=== PATIENT | male | born 1985 | race Caucasian/White ===

== ENCOUNTER → 2018-11-04 | Outpatient (CLI) | payer OTHER, MEDICARE ==
[~2018-11-04] MED LIST: DIVA500T2 PO; LEVO100C2 PO
[2018-11-04 12:45] LABS: BASOPHILS # (AUTO) 0.05 x10^3/uL (0-0.1); BASOPHILS % (AUTO) 1 % (0-1); EOSINOPHILS # (AUTO) 0.18 x10^3/uL (0-0.4); EOSINOPHILS % (AUTO) 2 % (1-7); LYMPHOCYTES # (AUTO) 2.61 x10^3/uL (1-3.4); LYMPHOCYTES % (AUTO) 27 % (22-44); MD NO; MEAN CORPUSCULAR HEMOGLOBIN 30.8 pg (27.5-34.5); MEAN CORPUSCULAR HGB CONC 33.4 g/dL (33.2-36.2); MEAN CORPUSCULAR VOLUME 92.1 fL (81-97); MONOCYTES # (AUTO) 0.83 x10^3/uL (0.2-0.8); MONOCYTES % (AUTO) 9 % (2-9); NEUTROPHILS # (AUTO) 5.96 x10^3/uL (1.8-6.8); NEUTROPHILS % (AUTO) 62 % (42-75); PLATELET COUNT 214 x10^3/uL (130-400); RED BLOOD COUNT 5.07 x10^6/uL (4.38-5.82); RED CELL DISTRIBUTION WIDTH 13.3 % (9.4-14.8)
[2018-11-04 13:00] LABS: CHLORIDE 106 mmol/L (98-107)
[2018-11-04 13:14] LABS: ALANINE AMINOTRANSFERASE 20 U/L (12-78); ALBUMIN 3.5 g/dL (3.4-5.0); ALKALINE PHOSPHATASE 72 U/L (45-117); ANION GAP 8 mmol/L (5-15); BILIRUBIN,TOTAL 0.2 mg/dL (0.2-1.0); CALCIUM 7.5 mg/dL (8.5-10.1); CHOL/HDL RATIO 5.1; CHOLESTEROL, TOTAL 169 mg/dL (140-239); CREATININE 0.81 mg/dL (0.7-1.3); HDL CHOL % 20 % (26-37); HDL CHOLESTEROL (DIRECT) 33 mg/dL (40-60); LDL CHOLESTEROL,CALCULATED 118 mg/dL (54-169); LDL/HDL RATIO 3.6 (0.5-3.0); TOTAL PROTEIN 7.3 g/dL (6.4-8.2); TRIGLYCERIDES 92 mg/dL (50-200); VLDL CHOLESTEROL 18 mg/dL (0-25)
== END | disposition home or self-care (01) ==
LOC: CFH 09:43
PROVIDERS: ATTEND Psychiatry & Neurology Psychiatry
DX: E03.9 Hypothyroidism, unspecified (principal); R56.9 Unspecified convulsions; Z79.899 Other long term (current) drug therapy
CPT/HCPCS: 36415; 80053; 80061; 80164; 84439; 84443; 85025

== ENCOUNTER → 2019-03-01 | Outpatient (CLI) | payer OTHER, MEDICARE ==
[2019-03-01 09:00] LABS: MEAN CORPUSCULAR HEMOGLOBIN 29.6 pg (27.5-34.5); MEAN CORPUSCULAR HGB CONC 32.4 g/dL (33.2-36.2); MEAN CORPUSCULAR VOLUME 91.5 fL (81-97); MEAN PLATELET VOLUME 8.4 fL (7.4-10.4); PLATELET COUNT 293 x10^3/uL (130-400); RED BLOOD COUNT 4.82 x10^6/uL (4.38-5.82); RED CELL DISTRIBUTION WIDTH 14.5 % (9.4-14.8)
[2019-03-01 09:02] LABS: MICROSCOPIC NOT IND
[2019-03-01 09:09] LABS: ALBUMIN 3.4 g/dL (3.4-5.0); ANION GAP 10 mmol/L (5-15); CALCIUM 7.4 mg/dL (8.5-10.1); CHLORIDE 108 mmol/L (98-107)
[2019-03-01 09:19] LABS: ALANINE AMINOTRANSFERASE 116 U/L (12-78); ALKALINE PHOSPHATASE 161 U/L (45-117); BILIRUBIN,TOTAL 0.9 mg/dL (0.2-1.0); CHOL/HDL RATIO 7.6; CHOLESTEROL, TOTAL 183 mg/dL (140-239); CREATININE 0.93 mg/dL (0.7-1.3); HDL CHOL % 13 % (26-37); HDL CHOLESTEROL (DIRECT) 24 mg/dL (40-60); LDL CHOLESTEROL,CALCULATED 119 mg/dL (54-169); T4 (THYROXINE) 16.5 mcg/dL (4.5-12.1); TOTAL PROTEIN 7.1 g/dL (6.4-8.2); TRIGLYCERIDES 201 mg/dL (50-200); VLDL CHOLESTEROL 40 mg/dL (0-25)
[2019-03-01 09:21] LABS: MD YES
[2019-03-01 09:24] LABS: BAND#(MANUAL) 0.07 x10^3/uL; BANDS%(MANUAL) 1 % (0-7); BASOS#(MANUAL) 0.07 x10^3/uL (0-0.1); BASOS% (MANUAL) 1 % (0-1); LYMPH#(MANUAL) 3.45 x10^3/uL (1-3.4); LYMPHS% (MANUAL) 50 % (22-44); MONOS#(MANUAL) 0.69 x10^3/uL (0.3-2.7); MONOS% (MANUAL) 10 % (2-9); REACTIVE LYMPHS % (MANUAL) 16 % (0-0); SEG#(MANUAL) 1.52 x10^3/uL (1.8-6.8); SEGS% (MANUAL) 22 % (42-75)
[2019-03-01 09:25] LABS: <PLATELET ESTIMATE> ADEQUATE; <PLT MORPHOLOGY> NORMAL PLT MORPH; POLYCHROMASIA 1+
== END | disposition home or self-care (01) ==
LOC: LAB 08:27
PROVIDERS: ATTEND Nurse Practitioner Family
DX: E03.9 Hypothyroidism, unspecified (principal); K59.00 Constipation, unspecified; F20.0 Paranoid schizophrenia
CPT/HCPCS: 36415; 80053; 80061; 81003; 82043; 82570; 84436; 84443; 84481; 85025

== ENCOUNTER 2019-03-29 08:26 | Outpatient (CLI) | payer OTHER, MEDICARE ==
[2019-03-29 08:49] LABS: BASOPHILS # (AUTO) 0.04 x10^3/uL (0-0.1); BASOPHILS % (AUTO) 1 % (0-1); EOSINOPHILS # (AUTO) 0.16 x10^3/uL (0-0.4); EOSINOPHILS % (AUTO) 3 % (1-7); LYMPHOCYTES # (AUTO) 2.62 x10^3/uL (1-3.4); LYMPHOCYTES % (AUTO) 44 % (22-44); MD NO; MEAN CORPUSCULAR HEMOGLOBIN 29.5 pg (27.5-34.5); MEAN CORPUSCULAR HGB CONC 32.9 g/dL (33.2-36.2); MEAN CORPUSCULAR VOLUME 89.7 fL (81-97); MEAN PLATELET VOLUME 8.1 fL (7.4-10.4); MONOCYTES # (AUTO) 0.68 x10^3/uL (0.2-0.8); MONOCYTES % (AUTO) 11 % (2-9); NEUTROPHILS # (AUTO) 2.49 x10^3/uL (1.8-6.8); NEUTROPHILS % (AUTO) 42 % (42-75); PLATELET COUNT 189 x10^3/uL (130-400); RED BLOOD COUNT 5.03 x10^6/uL (4.38-5.82); RED CELL DISTRIBUTION WIDTH 13.2 % (9.4-14.8)
[2019-03-29 09:01] LABS: ALANINE AMINOTRANSFERASE 33 U/L (12-78); ALBUMIN 3.5 g/dL (3.4-5.0); ANION GAP 6 mmol/L (5-15); CALCIUM 7.2 mg/dL (8.5-10.1); CHLORIDE 109 mmol/L (98-107); CREATININE 0.69 mg/dL (0.7-1.3)
[2019-03-29 09:04] LABS: ALKALINE PHOSPHATASE 77 U/L (45-117); BILIRUBIN,TOTAL 0.4 mg/dL (0.2-1.0)
[2019-03-29 13:32] LABS: MICROSCOPIC NOT IND
== END 2019-03-29 23:59 | disposition home or self-care (01) ==
LOC: LAB 08:26
PROVIDERS: ATTEND Internal Medicine Nephrology
DX: R94.4 Abnormal results of kidney function studies (principal)
CPT/HCPCS: 36415; 80053; 81003; 82570; 84100; 84156; 85025

== ENCOUNTER 2019-06-21 08:36 | Outpatient (CLI) | payer OTHER, MEDICARE ==
[2019-06-21 09:05] LABS: MICROSCOPIC NOT IND
[2019-06-21 09:10] LABS: BASOPHILS # (AUTO) 0.05 x10^3/uL (0-0.1); BASOPHILS % (AUTO) 1 % (0-1); EOSINOPHILS # (AUTO) 0.15 x10^3/uL (0-0.4); EOSINOPHILS % (AUTO) 2 % (1-7); LYMPHOCYTES % (AUTO) 36 % (22-44); MD NO; MEAN CORPUSCULAR HEMOGLOBIN 30.1 pg (27.5-34.5); MEAN CORPUSCULAR HGB CONC 33.2 g/dL (33.2-36.2); MEAN CORPUSCULAR VOLUME 90.9 fL (81-97); MEAN PLATELET VOLUME 8.7 fL (7.4-10.4); MONOCYTES # (AUTO) 0.63 x10^3/uL (0.2-0.8); MONOCYTES % (AUTO) 9 % (2-9); NEUTROPHILS # (AUTO) 3.53 x10^3/uL (1.8-6.8); NEUTROPHILS % (AUTO) 52 % (42-75); PLATELET COUNT 186 x10^3/uL (130-400); RED BLOOD COUNT 5.14 x10^6/uL (4.38-5.82); RED CELL DISTRIBUTION WIDTH 13.8 % (9.4-14.8)
[2019-06-21 09:13] LABS: ALANINE AMINOTRANSFERASE 27 U/L (12-78); ALBUMIN 3.6 g/dL (3.4-5.0); ANION GAP 7 mmol/L (5-15); CALCIUM 7.7 mg/dL (8.5-10.1); CHLORIDE 106 mmol/L (98-107); CREATININE 0.89 mg/dL (0.7-1.3)
[2019-06-21 09:16] LABS: ALKALINE PHOSPHATASE 77 U/L (45-117); BILIRUBIN,TOTAL 0.4 mg/dL (0.2-1.0); TOTAL PROTEIN 7.1 g/dL (6.4-8.2)
== END 2019-06-21 23:59 | disposition home or self-care (01) ==
LOC: LAB 08:36
PROVIDERS: ATTEND Internal Medicine Nephrology
DX: R94.4 Abnormal results of kidney function studies (principal)
CPT/HCPCS: 36415; 80053; 81003; 82570; 84100; 84156; 85025

== ENCOUNTER 2021-02-04 16:21 | Emergency (ER) | payer OTHER, MEDICARE ==
[~2021-02-04] VITALS: Ht 170.2 cm; Wt 87.8 kg
[2021-02-04 16:24] VITALS: BP 150/91
[2021-02-04 17:30] LABS: ALBUMIN 3.4 g/dL (3.4-5.0); ANION GAP 8 mmol/L (5-15); CALCIUM 6.9 mg/dL (8.5-10.1); CHLORIDE 107 mmol/L (98-107); CREATININE 0.68 mg/dL (0.7-1.3)
[2021-02-04 17:31] LABS: BASOPHILS % (AUTO) 1 % (0-1); EOSINOPHILS % (AUTO) 2 % (1-7); LYMPHOCYTES % (AUTO) 31 % (22-44); MD NO; MEAN CORPUSCULAR HEMOGLOBIN 30.6 pg (27.5-34.5); MEAN CORPUSCULAR HGB CONC 33.6 g/dL (33.2-36.2); MEAN PLATELET VOLUME 8.9 fL (7.4-10.4); MONOCYTES % (AUTO) 11 % (2-9); NEUTROPHILS % (AUTO) 55 % (42-75); PLATELET COUNT 135 x10^3/uL (130-400); RED BLOOD COUNT 4.83 x10^6/uL (4.38-5.82); RED CELL DISTRIBUTION WIDTH 13.1 % (9.4-14.8)
== END 2021-02-04 18:36 | disposition home or self-care (01) ==
LOC: ED 17:48
DX: L03.113 Cellulitis of right upper limb (principal); M79.641 Pain in right hand
CPT/HCPCS: 36415; 80048; 82040; 85025; 99284

== ENCOUNTER → 2021-03-26 | Outpatient (CLI) | payer OTHER, MEDICARE ==
[2021-03-26 09:38] LABS: BASOPHILS % (AUTO) 1 % (0-1); EOSINOPHILS % (AUTO) 4 % (1-7); LYMPHOCYTES % (AUTO) 34 % (22-44); MEAN CORPUSCULAR HEMOGLOBIN 30.9 pg (27.5-34.5); MEAN CORPUSCULAR HGB CONC 33.7 g/dL (33.2-36.2); MONOCYTES % (AUTO) 12 % (2-9); NEUTROPHILS % (AUTO) 50 % (42-75); PLATELET COUNT 112 x10^3/uL (130-400); RED BLOOD COUNT 4.83 x10^6/uL (4.38-5.82); RED CELL DISTRIBUTION WIDTH 13.3 % (9.4-14.8)
[2021-03-26 09:44] LABS: ALBUMIN 3.4 g/dL (3.4-5.0); ANION GAP 6 mmol/L (5-15); CALCIUM 7.1 mg/dL (8.5-10.1); CHLORIDE 109 mmol/L (98-107); MD NO
[2021-03-26 10:10] LABS: % IRON SATURATION 26 % (20-55); ALANINE AMINOTRANSFERASE 24 U/L (12-78); ALKALINE PHOSPHATASE 70 U/L (45-117); BILIRUBIN,TOTAL 0.3 mg/dL (0.2-1.0); CREATININE 0.73 mg/dL (0.7-1.3); FREE T4 (FREE THYROXINE) 1.18 ng/dL (0.76-1.46); IRON LEVEL 78 mcg/dL (65-175); TOTAL IRON BINDING CAPACITY 295 mcg/dL (250-450); TOTAL PROTEIN 7.1 g/dL (6.4-8.2); TRANSFERRIN 232 mg/dL (200-360)
[2021-03-26 10:22] LABS: FOLATE LEVEL > 20.0 ng/mL (3.1-17.5)
[2021-03-26 15:35] LABS: MICROSCOPIC NOT IND
== END | disposition home or self-care (01) ==
LOC: LAB 08:27
PROVIDERS: ATTEND Nurse Practitioner Primary Care
DX: Z13.220 Encounter for screening for lipoid disorders (principal); E03.9 Hypothyroidism, unspecified; R59.0 Localized enlarged lymph nodes; E55.9 Vitamin D deficiency, unspecified; E78.2 Mixed hyperlipidemia; Z83.438 Family history of other disorder of lipoprotein metabolism and other lipidemia; Z79.899 Other long term (current) drug therapy; F20.9 Schizophrenia, unspecified
CPT/HCPCS: 36415; 80053; 80061; 80165; 81003; 82306; 82525; 82607; 82652; 82728; 82746; 82784; 82785; 83036; 83540; 83550; 83704; 84207; 84425; 84439; 84443; 84466; 84481; 84630; 85025; 86225; 86235; 86376; 86800